=== PATIENT | male | born 1960 | race Caucasian/White ===

== ENCOUNTER 2024-05-18 07:54 | Inpatient (IN) | payer SELFPAY ==
[~2024-05-18] VITALS: Ht 185.4 cm; Wt 122.5 kg
[2024-05-18 08:43] LABS: BASOPHILS % 1.2 % (0.0-2.0); EOSINOPHILS % 3.1 % (0.0-5.0); HEMATOCRIT. 41.9 % (42.0-52.0); HEMOGLOBIN. 14.9 g/dL (14.0-18.0); LYMPHOCYTES % 21.8 % (20.0-50.0); MEAN CORPUSCULAR HEMOGLOBIN 33.6 pg (28.0-32.0); MEAN CORPUSCULAR HGB CONC 35.6 g/dL (31.0-37.0); MEAN CORPUSCULAR VOLUME 94.3 fL (80.0-94.0); MONOCYTES % 12.9 % (2.0-8.0); PLATELET 255 x1000/uL (130-400); RED BLOOD CELL COUNT 4.44 mill/uL (4.7-6.1); RED CELL DISTRIBUTION WIDTH 13.8 % (11.6-14.6); WHITE BLOOD COUNT 6.5 x1000/uL (4.5-11.0)
[2024-05-18 09:26] LABS: CHLORIDE 99 mEq/L (98-107); POTASSIUM 3.2 mEq/L (3.5-5.1); SODIUM 136 mEq/L (136-145)
[2024-05-18 09:27] LABS: CALCIUM 10.2 mg/dL (8.7-10.4); CARBON DIOXIDE 28 mEq/L (21-32)
[2024-05-18 09:32] LABS: AMMONIA < 17 uMol/L (<32); CREATININE 1.2 mg/dL (0.6-1.3); GLUCOSE 141 mg/dL (70-105); UREA NITROGEN BLOOD 18 mg/dL (9-23)
[2024-05-18 09:34] LABS: ACETAMINOPHEN 3 ug/mL (10-30); ALANINE AMINOTRANSFERASE 37 IU/L (10-49); ASPARTATE AMINOTRANSFERASE 25 IU/L (<34); BILIRUBIN DIRECT 0.2 mg/dL (<=3.0); BILIRUBIN TOTAL 0.7 mg/dL (0.1-1.0); PROTEIN TOTAL 7.7 g/dL (6.0-8.3)
[2024-05-18 09:56] LABS: ETHANOL BLOOD < 10 mg/dL (<10)
[2024-05-18] MEDS ORDERED: POTASSIUM CHLORIDE 20MEQ TABLET SR PO STA (13:19)
[2024-05-18] MEDS: POTASSIUM CHLORIDE 20MEQ TABLET SR PO NR (15:08)
[2024-05-18] MEDS ORDERED: CLONIDINE 0.1MG TABLET PO PRN (17:30)
[2024-05-18] MEDS ORDERED: ZOLPIDEM TARTRATE 5MG TABLET PO PRN (17:30)
[2024-05-18] MEDS: SODIUM CHLORIDE 0.9% 1,000 ML IV SCH (17:30)
[2024-05-18] MEDS ORDERED: ONDANSETRON HCL 4MG/2ML INJ IV PRN (17:30)
[2024-05-18] MEDS ORDERED: IPRATROPIUM/ALBUTEROL 0.5-3(2.5)MG/3ML NEB NEB PRN (17:30)
[2024-05-18] MEDS: LORAZEPAM 2MG/ML INJ IV PRN (19:00)
[2024-05-18 20:00] VITALS: BP 143/91; PULSE 87; RESP 20; TEMP 37.44744; TEMP 37.4744; O2SAT 96
[2024-05-18] MEDS: ENOXAPARIN 30MG/0.3ML SYR SUBCUT SCH (20:31)
[2024-05-19] VITALS (7 sets, daily range): BP systolic 118–174; BP diastolic 74–107; PULSE 98–119; RESP 16–20; TEMP 36.05844–36.72516; O2SAT 93–97
[2024-05-19] MEDS: HYDRALAZINE 20MG/ML VIAL IV PRN (01:35)
[2024-05-19] MEDS ORDERED: EZET10TA81 MT (04:36)
[2024-05-19] MEDS ORDERED: FLUT9.9S BOTHNSTRLS (04:36)
[2024-05-19] MEDS ORDERED: ACET-2708 MT (04:36)
[2024-05-19] MEDS ORDERED: VENL150C52 MT (04:36)
[2024-05-19] MEDS ORDERED: ROSU40TA MT (04:36)
[2024-05-19] MEDS ORDERED: PREG75CA MT (04:36)
[2024-05-19] MEDS ORDERED: METF-414 MT (04:36)
[2024-05-19] MEDS ORDERED: PERI4TAB MT (04:36)
[2024-05-19] MEDS ORDERED: CLON0.5T23 MT (04:36)
[2024-05-19] MEDS ORDERED: TAMS-11 MT (04:36)
[2024-05-19] MEDS ORDERED: *PATIENT'S OWN MEDICATION STORAGE XX SCH (07:15)
[2024-05-19 08:45] LABS: CHLORIDE 103 mEq/L (98-107); SODIUM 140 mEq/L (136-145)
[2024-05-19 08:46] LABS: CALCIUM 10.3 mg/dL (8.7-10.4); CARBON DIOXIDE 25 mEq/L (21-32)
[2024-05-19 08:50] LABS: CREATINE KINASE MB FRACTION 0.7 ng/mL (0.5-3.6)
[2024-05-19 08:51] LABS: CREATININE 0.9 mg/dL (0.6-1.3); GLUCOSE 141 mg/dL (70-105); TRIGLYCERIDE 94 mg/dL (0-150); UREA NITROGEN BLOOD 14 mg/dL (9-23)
[2024-05-19 08:52] LABS: LDL CHOLESTEROL 43 mg/dL (5-100)
[2024-05-19 08:53] LABS: BASOPHILS % 0.8 % (0.0-2.0); CHOLESTEROL 106 mg/dL (<200); CREATINE KINASE 183 IU/L (46-171); DIFFERENTIAL COMMENT 0; EOSINOPHILS % 0.7 % (0.0-5.0); HDL CHOLESTEROL 45 mg/dL (>55); HEMATOCRIT. 41.1 % (42.0-52.0); HEMOGLOBIN. 14.7 g/dL (14.0-18.0); LYMPHOCYTES % 17.9 % (20.0-50.0); MEAN CORPUSCULAR HEMOGLOBIN 34.2 pg (28.0-32.0); MEAN CORPUSCULAR HGB CONC 35.9 g/dL (31.0-37.0); MEAN CORPUSCULAR VOLUME 95.4 fL (80.0-94.0); MEAN PLATELET VOLUME 9.2 fl (7.4-10.4); MONOCYTES % 13.1 % (2.0-8.0); NEUTROPHILS % 67.5 % (40.0-76.0); PLATELET 279 x1000/uL (130-400); RED CELL DISTRIBUTION WIDTH 13.5 % (11.6-14.6); WHITE BLOOD COUNT 7.4 x1000/uL (4.5-11.0)
[2024-05-19 09:11] LABS: TROPONIN I HIGH SENSITIVITY < 4 ng/L (3.0-53)
[2024-05-19 09:16] LABS: POTASSIUM 2.7 mEq/L (3.5-5.1)
[2024-05-19] MEDS: KCL 20MEQ/100ML PREMIX 100 ML IV SCH (11:52)
[2024-05-19 14:00] LABS: TROPONIN I HIGH SENSITIVITY 4 ng/L (3.0-53)
[2024-05-19 14:02] LABS: CREATINE KINASE 220 IU/L (46-171)
[2024-05-19 22:46] LABS: VITAMIN B12 SERUM 565 pg/mL (211-911)
[2024-05-20] VITALS: BP 145/88; PULSE 114; RESP 20; TEMP 36.28068; O2SAT 92
[2024-05-20 04:00] VITALS: BP 136/89; PULSE 95; RESP 20; TEMP 36.44736; O2SAT 95
[2024-05-20 08:00] VITALS: BP 118/79; PULSE 79; RESP 18; TEMP 36.33624; O2SAT 100
[2024-05-20 12:00] VITALS: BP 168/92; PULSE 108; RESP 18; TEMP 36.44736; O2SAT 96
[2024-05-20 16:00] VITALS: BP 167/96; PULSE 114; RESP 18; TEMP 36.6696; O2SAT 95
[2024-05-20] MEDS ORDERED: DEXTROSE 50% WATER 50ML SYRINGE IV PRN (19:45)
[2024-05-20 20:00] VITALS: BP 155/81; PULSE 116; RESP 20; TEMP 36.72516; O2SAT 98
[2024-05-20 20:13] LABS: CLARITY URINE CLEAR (CLEAR); COLOR URINE YELLOW (YELLOW); GLUCOSE URINE NEGATIVE (NEGATIVE); KETONES URINE TRACE (NEGATIVE); LEUKOCYTE ESTERASE URINE NEGATIVE (NEGATIVE); NITRITE URINE NEGATIVE (NEGATIVE); OCCULT BLOOD URINE NEGATIVE (NEGATIVE); PROTEIN URINE NEGATIVE (NEGATIVE); SPECIFIC GRAVITY URINE 1.021 (1.005-1.030); UROBILINOGEN URINE 0.2 E.U./dL (0.2-1.0)
[2024-05-20 21:29] LABS: *AMPHETAMINES SCREEN URINE NEGATIVE (NEGATIVE)
[2024-05-20 21:30] LABS: *BARBITURATES SCREEN URINE NEGATIVE (NEGATIVE); *BENZODIAZEPINES SCREEN URINE NEGATIVE (NEGATIVE); *COCAINE SCREEN URINE NEGATIVE (NEGATIVE)
[2024-05-20 21:31] LABS: CANNABINOID URINE SCREEN PRESUMPTIVE POSITIVE (NEGATIVE); ECSTASY MDMA SCREEN URINE NEGATIVE (NEGATIVE); METHADONE URINE SCREEN NEGATIVE (NEGATIVE); OPIATES URINE SCREEN NEGATIVE (NEGATIVE); PHENCYCLIDINE URINE SCREEN NEGATIVE (NEGATIVE)
[2024-05-20] MEDS: QUETIAPINE FUMARATE 25MG TABLET PO SCH (22:35)
[2024-05-20] MEDS: DEXT 5%/0.9% NACL 1,000 ML IV SCH (22:37)
[2024-05-20] MEDS: BLOOD SUGAR DIAGNOSTIC STRIP TEST SCH (23:55)
[2024-05-21] VITALS: BP 166/93; PULSE 114; RESP 18; TEMP 36.22512; TEMP 38.11416; O2SAT 98
[2024-05-21] MEDS: INSULIN LISPRO 100 UNITS/ML SUBCUT SCH (01:17)
[2024-05-21 04:00] VITALS: BP 154/93; PULSE 116; RESP 20; TEMP 37.28076; O2SAT 97
[2024-05-21 06:27] LABS: CALCIUM 9.4 mg/dL (8.7-10.4); CARBON DIOXIDE 24 mEq/L (21-32); CHLORIDE 110 mEq/L (98-107); POTASSIUM 3.1 mEq/L (3.5-5.1); SODIUM 146 mEq/L (136-145)
[2024-05-21 06:32] LABS: CREATININE 0.9 mg/dL (0.6-1.3)
[2024-05-21 06:33] LABS: GLUCOSE 135 mg/dL (70-105); UREA NITROGEN BLOOD 18 mg/dL (9-23)
[2024-05-21 07:20] LABS: BASOPHILS % 0.6 % (0.0-2.0); EOSINOPHILS % 0.1 % (0.0-5.0); HEMOGLOBIN. 14.8 g/dL (14.0-18.0); LYMPHOCYTES % 8.7 % (20.0-50.0); MEAN CORPUSCULAR HEMOGLOBIN 32.9 pg (28.0-32.0); MEAN CORPUSCULAR HGB CONC 34.3 g/dL (31.0-37.0); MEAN CORPUSCULAR VOLUME 95.9 fL (80.0-94.0); MEAN PLATELET VOLUME 9.4 fl (7.4-10.4); MONOCYTES % 12.1 % (2.0-8.0); NEUTROPHILS % 78.5 % (40.0-76.0); PLATELET 277 x1000/uL (130-400); RED BLOOD CELL COUNT 4.48 mill/uL (4.7-6.1); RED CELL DISTRIBUTION WIDTH 13.7 % (11.6-14.6); WHITE BLOOD COUNT 8.5 x1000/uL (4.5-11.0)
[2024-05-21 08:04] VITALS: BP 186/100; PULSE 83; RESP 18; TEMP 36.72516; O2SAT 93
[2024-05-21 11:52] VITALS: BP 141/84; PULSE 111; RESP 19; TEMP 36.6696; O2SAT 93
[2024-05-21] MEDS: THIAMINE HCL 200 MG in SODIUM CHLORIDE 0.9% 98 ML IV SCH (13:07)
[2024-05-21 16:08] VITALS: BP 128/92; PULSE 108; RESP 19; TEMP 37.16964; O2SAT 92
[2024-05-21] MEDS: POTASSIUM CHLORIDE 20MEQ/PACKET PO NR (18:12)
[2024-05-21 20:00] VITALS: BP 136/89; PULSE 105; RESP 20; TEMP 37.11408; O2SAT 97
[2024-05-22 00:09] VITALS: BP 156/92; PULSE 88; RESP 20; TEMP 37.05852; O2SAT 98
[2024-05-22 04:00] VITALS: BP 159/52; PULSE 93; RESP 18; TEMP 37.16964; O2SAT 97
[2024-05-22 08:00] VITALS: BP 170/74; PULSE 92; RESP 18; TEMP 37.16964; O2SAT 98
[2024-05-22] MEDS ORDERED: MIRT45TA83 MT (08:47)
[2024-05-22] MEDS: RISPERIDONE 1MG TABLET PO SCH (10:46)
[2024-05-22 12:00] VITALS: BP 129/76; PULSE 102; RESP 18; TEMP 36.61404; O2SAT 98
[2024-05-22 15:31] LABS: HEMATOCRIT. 40.3 % (42.0-52.0); HEMOGLOBIN. 13.5 g/dL (14.0-18.0); LYMPHOCYTES % 27.4 % (20.0-50.0); MEAN CORPUSCULAR HEMOGLOBIN 32.9 pg (28.0-32.0); MEAN CORPUSCULAR HGB CONC 33.5 g/dL (31.0-37.0); MEAN CORPUSCULAR VOLUME 98.2 fL (80.0-94.0); MEAN PLATELET VOLUME 9.4 fl (7.4-10.4); MONOCYTES % 13.1 % (2.0-8.0); NEUTROPHILS % 55.5 % (40.0-76.0); PLATELET 231 x1000/uL (130-400); RED CELL DISTRIBUTION WIDTH 14.2 % (11.6-14.6); WHITE BLOOD COUNT 7.2 x1000/uL (4.5-11.0)
[2024-05-22 15:32] LABS: CHLORIDE 114 mEq/L (98-107); POTASSIUM 3.1 mEq/L (3.5-5.1); SODIUM 147 mEq/L (136-145)
[2024-05-22 15:33] LABS: CALCIUM 9.2 mg/dL (8.7-10.4); CARBON DIOXIDE 26 mEq/L (21-32)
[2024-05-22 15:38] LABS: CREATININE 0.8 mg/dL (0.6-1.3); GLUCOSE 94 mg/dL (70-105); UREA NITROGEN BLOOD 21 mg/dL (9-23)
[2024-05-22 16:29] VITALS: BP 147/87; PULSE 87; RESP 18; TEMP 36.44736; O2SAT 96
[2024-05-22] MEDS: POTASSIUM CHLORIDE 20 MEQ in DEXT 5%/0.45% NACL 1000ML 1,000 ML IV SCH (17:48)
[2024-05-22 20:00] VITALS: BP 131/57; PULSE 88; RESP 20; TEMP 36.3918; O2SAT 95
[2024-05-23] VITALS: BP 150/80; PULSE 90; RESP 20; TEMP 36.22512; O2SAT 96
[2024-05-23 04:00] VITALS: BP 127/95; PULSE 89; RESP 20; TEMP 36.83628; O2SAT 98
[2024-05-23 08:29] LABS: CALCIUM 9.3 mg/dL (8.7-10.4); CHLORIDE 111 mEq/L (98-107); POTASSIUM 3.1 mEq/L (3.5-5.1); SODIUM 146 mEq/L (136-145)
[2024-05-23 08:30] LABS: CARBON DIOXIDE 26 mEq/L (21-32)
[2024-05-23 08:35] LABS: CREATININE 0.8 mg/dL (0.6-1.3); GLUCOSE 105 mg/dL (70-105); UREA NITROGEN BLOOD 21 mg/dL (9-23)
[2024-05-23 10:48] VITALS: BP 163/96; PULSE 90; RESP 20; TEMP 37.05852; O2SAT 95
[2024-05-23 12:06] VITALS: BP 160/85; PULSE 96; RESP 18; TEMP 37.00296; O2SAT 98
[2024-05-23] MEDS: HALOPERIDOL LACTATE 5MG/ML VIAL IM PRN (12:34)
[2024-05-23 16:39] VITALS: BP 158/80; PULSE 94; RESP 18; TEMP 36.61404; O2SAT 97
[2024-05-23 20:00] VITALS: BP 170/83; PULSE 101; RESP 20; TEMP 36.78072; O2SAT 95
[2024-05-24] VITALS: BP 145/81; PULSE 94; RESP 20; TEMP 36.61404; O2SAT 96
[2024-05-24 04:00] VITALS: BP 147/58; PULSE 99; RESP 19; TEMP 36.44736; O2SAT 97
[2024-05-24] MEDS: NACL KCL IV SCH ×2 (06:37→23:26)
[2024-05-24] MEDS: DEXT IV SCH ×2 (06:37→23:26)
[2024-05-24] MEDS: POTASSIUM CHLORIDE IV SCH ×2 (06:37→23:26)
[2024-05-24 08:00] VITALS: BP 156/84; PULSE 104; PULSE 99; RESP 20; TEMP 36.44736; O2SAT 97
[2024-05-24 12:00] VITALS: BP 140/89; PULSE 91; RESP 20; TEMP 36.3918; O2SAT 99
[2024-05-24 16:00] VITALS: BP 146/80; PULSE 89; RESP 18; TEMP 36.3918; O2SAT 98
[2024-05-24 20:41] VITALS: BP 145/80; PULSE 79; RESP 20; TEMP 36.3918; O2SAT 93
[2024-05-25] VITALS: BP 144/80; PULSE 84; RESP 20; TEMP 36.33624; O2SAT 98
[2024-05-25 04:00] VITALS: BP 152/79; PULSE 75; RESP 20; TEMP 37.503; O2SAT 100
[2024-05-25 08:03] VITALS: BP 137/80; PULSE 76; RESP 18; TEMP 36.61404; O2SAT 98
[2024-05-25 11:38] VITALS: BP 141/81; PULSE 69; RESP 19; TEMP 36.89184; O2SAT 98
[2024-05-25 13:59] LABS: CLARITY URINE CLEAR (CLEAR); COLOR URINE DARK YELLOW (YELLOW); GLUCOSE URINE NEGATIVE (NEGATIVE); KETONES URINE NEGATIVE (NEGATIVE); LEUKOCYTE ESTERASE URINE NEGATIVE (NEGATIVE); NITRITE URINE NEGATIVE (NEGATIVE); OCCULT BLOOD URINE NEGATIVE (NEGATIVE); PROTEIN URINE TRACE (NEGATIVE); SPECIFIC GRAVITY URINE 1.026 (1.005-1.030)
[2024-05-25 14:24] LABS: BACTERIA URINE NONE SEEN; RBC URINE 0-2 /hpf (0-2); SQUAMOUS EPITHELIAL CELL URINE RARE /lpf (RARE/1+); WBC URINE 0-2 /hpf (0-2); YEAST URINE NONE SEEN
[2024-05-25 16:41] VITALS: BP 154/86; PULSE 87; RESP 20; TEMP 36.83628; O2SAT 97
[2024-05-25 20:00] VITALS: BP 129/69; PULSE 85; RESP 18; TEMP 37.503; O2SAT 96
[2024-05-26] VITALS: BP 133/65; PULSE 77; RESP 18; TEMP 37.00296; O2SAT 97
[2024-05-26 04:00] VITALS: BP 167/80; PULSE 90; RESP 20; TEMP 37.39188; O2SAT 98
[2024-05-26 07:58] VITALS: BP 163/95; PULSE 92; RESP 20; TEMP 36.72516; O2SAT 97
[2024-05-26] MEDS: RISPERIDONE 1MG TABLET PO SCH (10:32)
[2024-05-26 11:34] VITALS: BP 141/87; PULSE 113; RESP 20; TEMP 37.00296; O2SAT 97
[2024-05-26 16:06] VITALS: BP 141/89; PULSE 94; RESP 20; TEMP 36.78072; O2SAT 96
[2024-05-26 20:06] VITALS: BP 140/84; PULSE 93; RESP 18; TEMP 37.28076; O2SAT 96
[2024-05-27] VITALS: BP 154/88; PULSE 68; RESP 20; TEMP 36.61404; O2SAT 99
[2024-05-27 04:00] VITALS: BP 163/86; PULSE 95; RESP 18; TEMP 37.2252; O2SAT 98
[2024-05-27 07:51] VITALS: BP 150/92; PULSE 92; RESP 18; TEMP 37.00296; O2SAT 94
[2024-05-27 11:57] VITALS: BP 135/95; PULSE 88; RESP 18; TEMP 37.05852; O2SAT 95
[2024-05-27 16:00] VITALS: BP 110/77; PULSE 89; RESP 20; TEMP 36.72516; O2SAT 96
[2024-05-27 20:29] VITALS: BP 129/76; PULSE 90; RESP 20; TEMP 37.72524; O2SAT 98
[2024-05-28] VITALS: BP 138/74; PULSE 90; RESP 20; TEMP 37.66968; O2SAT 97
[2024-05-28 04:00] VITALS: BP 135/75; PULSE 78; RESP 20; TEMP 37.11408; O2SAT 98
[2024-05-28 08:00] VITALS: BP 142/83; PULSE 83; RESP 19; TEMP 36.6696; O2SAT 95
[2024-05-28 12:00] VITALS: BP 110/78; PULSE 69; RESP 18; TEMP 36.16956; O2SAT 98
[2024-05-28 16:00] VITALS: BP 121/71; PULSE 97; RESP 18; TEMP 36.50292; O2SAT 98
[2024-05-28 20:00] VITALS: BP 127/79; PULSE 85; RESP 20; TEMP 37.66968; O2SAT 99
[2024-05-29] VITALS (7 sets, daily range): BP systolic 114–153; BP diastolic 65–85; PULSE 78–96; RESP 18–20; TEMP 36.44736–37.39188; O2SAT 87–99
[2024-05-29 12:26] LABS: CHLORIDE 106 mEq/L (98-107); POTASSIUM 4.2 mEq/L (3.5-5.1); SODIUM 138 mEq/L (136-145)
[2024-05-29 12:27] LABS: CARBON DIOXIDE 26 mEq/L (21-32)
[2024-05-29 12:28] LABS: CALCIUM 9.2 mg/dL (8.7-10.4)
[2024-05-29 12:32] LABS: CREATININE 0.9 mg/dL (0.6-1.3); GLUCOSE 109 mg/dL (70-105)
[2024-05-29 12:33] LABS: UREA NITROGEN BLOOD 13 mg/dL (9-23)
[2024-05-29 14:22] LABS: CLARITY URINE CLOUDY (CLEAR); COLOR URINE YELLOW (YELLOW); GLUCOSE URINE NEGATIVE (NEGATIVE); KETONES URINE NEGATIVE (NEGATIVE); LEUKOCYTE ESTERASE URINE TRACE (NEGATIVE); NITRITE URINE NEGATIVE (NEGATIVE); OCCULT BLOOD URINE 3+ (NEGATIVE); PH URINE 5.5 (4.5-8.0); PROTEIN URINE 1+ (NEGATIVE); SPECIFIC GRAVITY URINE 1.019 (1.005-1.030); UROBILINOGEN URINE 0.2 E.U./dL (0.2-1.0)
[2024-05-29 14:44] LABS: MUCUS URINE 3+ /lpf (NONE/TRACE)
[2024-05-29 14:45] LABS: RBC URINE TNTC /hpf (0-2)
[2024-05-29 14:46] LABS: BACTERIA URINE 2+; SQUAMOUS EPITHELIAL CELL URINE RARE /lpf (RARE/1+)
[2024-05-29] MEDS: DEXT 5%/0.45% NACL KCL 20MEQ/L 1,000 ML IV SCH (16:34)
[2024-05-30 04:00] VITALS: BP 116/68; PULSE 89; RESP 20; TEMP 36.33624; O2SAT 97
[2024-05-30 08:29] VITALS: BP 141/65; PULSE 72; RESP 20; TEMP 36.50292; O2SAT 96
[2024-05-30 12:24] VITALS: BP 138/61; PULSE 79; RESP 20; TEMP 37.16964; O2SAT 100
[2024-05-30 16:27] VITALS: BP 126/64; PULSE 83; RESP 20; TEMP 36.55848; O2SAT 94
[2024-05-30 20:00] VITALS: BP 133/81; PULSE 80; RESP 18; TEMP 36.50292; O2SAT 95
[2024-05-31] VITALS: BP 132/85; PULSE 99; RESP 18; TEMP 36.55848; O2SAT 97
[2024-05-31 04:00] VITALS: BP 139/80; PULSE 94; RESP 20; TEMP 37.44744; O2SAT 95
[2024-05-31 08:00] VITALS: BP 136/84; PULSE 86; RESP 18; TEMP 36.61404; O2SAT 97
[2024-05-31 12:00] VITALS: BP 126/80; PULSE 86; RESP 18; TEMP 36.6696; O2SAT 97
[2024-05-31 16:00] VITALS: BP 123/59; PULSE 96; RESP 20; TEMP 36.114; O2SAT 98
[2024-05-31] MEDS ORDERED: HYDRALAZINE 10 MG in SODIUM CHLORIDE 0.9% 49.5 ML IV PRN (17:15)
[2024-05-31 20:00] VITALS: BP 95/57; PULSE 103; RESP 18; TEMP 36.16956; O2SAT 95
[2024-06-01] VITALS: BP 91/49; PULSE 103; RESP 18; TEMP 36.22512; O2SAT 95
[2024-06-01] MEDS: TRAZODONE HCL 50MG TABLET PO SCH (01:41)
[2024-06-01 04:00] VITALS: BP 138/87; PULSE 100; RESP 18; TEMP 36.28068; O2SAT 95
[2024-06-01 08:00] VITALS: BP 127/76; PULSE 94; RESP 20; TEMP 36.44736; O2SAT 98
[2024-06-01 12:00] VITALS: BP 117/72; PULSE 100; RESP 18; TEMP 36.33624; O2SAT 97
[2024-06-01 16:00] VITALS: BP 137/75; PULSE 91; RESP 16; TEMP 36.9474; O2SAT 95
[2024-06-01 20:00] VITALS: BP 106/67; PULSE 85; RESP 18; TEMP 36.3918; O2SAT 95
[2024-06-01] MEDS: ACETAMINOPHEN 325MG TABLET PO PRN (21:34)
[2024-06-02] VITALS: BP 108/80; PULSE 85; RESP 18; TEMP 36.28068; O2SAT 95
[2024-06-02 04:00] VITALS: BP 126/53; PULSE 91; RESP 19; TEMP 36.22512; O2SAT 96
[2024-06-02 08:00] VITALS: BP 118/72; PULSE 84; RESP 18; TEMP 36.33624; O2SAT 97
[2024-06-02 08:19] LABS: CHLORIDE 107 mEq/L (98-107); POTASSIUM 3.9 mEq/L (3.5-5.1); SODIUM 138 mEq/L (136-145)
[2024-06-02 08:20] LABS: CARBON DIOXIDE 23 mEq/L (21-32)
[2024-06-02 08:21] LABS: CALCIUM 8.9 mg/dL (8.7-10.4)
[2024-06-02 08:25] LABS: CREATININE 0.8 mg/dL (0.6-1.3); GLUCOSE 109 mg/dL (70-105); UREA NITROGEN BLOOD 13 mg/dL (9-23)
[2024-06-02 08:47] LABS: BASOPHILS % 0.8 % (0.0-2.0); EOSINOPHILS % 3.6 % (0.0-5.0); HEMATOCRIT. 38.1 % (42.0-52.0); HEMOGLOBIN. 12.7 g/dL (14.0-18.0); LYMPHOCYTES % 17.9 % (20.0-50.0); MEAN CORPUSCULAR HGB CONC 33.5 g/dL (31.0-37.0); MEAN CORPUSCULAR VOLUME 95.7 fL (80.0-94.0); MEAN PLATELET VOLUME 9.3 fl (7.4-10.4); NEUTROPHILS % 66.7 % (40.0-76.0); PLATELET 234 x1000/uL (130-400); RED BLOOD CELL COUNT 3.98 mill/uL (4.7-6.1); RED CELL DISTRIBUTION WIDTH 13.9 % (11.6-14.6); WHITE BLOOD COUNT 6.4 x1000/uL (4.5-11.0)
[2024-06-02 12:00] VITALS: BP 127/77; PULSE 88; RESP 20; TEMP 36.22512; O2SAT 98
[2024-06-02 16:00] VITALS: BP 124/81; PULSE 85; RESP 18; TEMP 36.3918; O2SAT 99
[2024-06-02 20:00] VITALS: BP 110/57; PULSE 87; RESP 18; TEMP 36.3918; O2SAT 96
[2024-06-03] VITALS: BP 112/47; PULSE 89; RESP 18; TEMP 36.3918; O2SAT 97
[2024-06-03] MEDS ORDERED: IPRATROPIUM/ALBUTEROL 0.5-3(2.5)MG/3ML NEB HHN PRN (02:15)
[2024-06-03] MEDS: CLONAZEPAM 0.5MG TABLET PO SCH (02:28)
[2024-06-03 04:00] VITALS: BP 105/60; PULSE 60; RESP 18; TEMP 36.28068; O2SAT 98
[2024-06-03 12:00] VITALS: BP 130/68; PULSE 72; RESP 20; TEMP 36.72516; O2SAT 97
[2024-06-03 16:46] VITALS: BP 136/80; PULSE 93; RESP 18; TEMP 36.83628; O2SAT 94
[2024-06-03] MEDS ORDERED: CLONAZEPAM 0.5MG TABLET PO PRN (17:30)
[2024-06-03 20:00] VITALS: BP 120/62; PULSE 82; RESP 18; TEMP 36.61404; O2SAT 95
[2024-06-03] MEDS: CLONAZEPAM 1MG TABLET PO PRN (20:29)
[2024-06-04] VITALS: BP 111/55; PULSE 79; RESP 18; TEMP 36.72516; O2SAT 96
[2024-06-04 04:00] VITALS: BP 121/60; PULSE 87; RESP 18; TEMP 36.3918; O2SAT 96
[2024-06-04 08:00] VITALS: BP 116/77; PULSE 73; RESP 18; TEMP 36.00288; O2SAT 95
[2024-06-04] MEDS: CLONAZEPAM 1MG TABLET PO PRN (08:54)
[2024-06-04] MEDS: ENOXAPARIN 30MG/0.3ML SYR SUBCUT SCH (08:55)
[2024-06-04 12:00] VITALS: BP 121/72; PULSE 70; RESP 20; TEMP 36.114; O2SAT 100
[2024-06-04 16:00] VITALS: BP 135/77; PULSE 84; RESP 19; TEMP 36.3918; O2SAT 99
[2024-06-04 20:00] VITALS: BP 124/53; PULSE 89; RESP 17; TEMP 35.89176
[2024-06-05] VITALS: BP 125/62; PULSE 90; RESP 17; TEMP 35.94732; O2SAT 97
[2024-06-05 04:00] VITALS: BP 103/69; PULSE 81; RESP 18; TEMP 36.61404; O2SAT 99
[2024-06-05 08:00] VITALS: BP 137/84; PULSE 77; RESP 16; TEMP 36.3918; O2SAT 97
[2024-06-05] MEDS ORDERED: LIDOCAINE HCL 1% 10 MG/ML 10ML VIAL ONE (09:51)
[2024-06-05 12:00] VITALS: BP 117/77; PULSE 84; RESP 18; TEMP 36.3918; O2SAT 97
[2024-06-05 16:00] VITALS: BP 116/59; PULSE 84; RESP 20; TEMP 36.44736; O2SAT 96
[2024-06-05 20:00] VITALS: BP 119/44; PULSE 86; RESP 19; TEMP 36.3918; O2SAT 93
[2024-06-05] MEDS: RISPERIDONE 1MG TABLET PO SCH (20:58)
[2024-06-06] VITALS: BP 120/50; PULSE 88; RESP 18; TEMP 36.44736; O2SAT 91
[2024-06-06 04:00] VITALS: BP 118/61; PULSE 88; RESP 18; TEMP 36.50292; O2SAT 99
[2024-06-06 08:00] VITALS: BP 138/87; PULSE 81; RESP 20; TEMP 36.6696; O2SAT 100
[2024-06-06 12:00] VITALS: BP 155/92; PULSE 87; RESP 18; TEMP 36.78072; O2SAT 100
[2024-06-06 16:00] VITALS: BP 142/81; PULSE 84; RESP 20; TEMP 36.114; O2SAT 100
[2024-06-06 20:00] VITALS: BP 93/57; PULSE 80; RESP 18; TEMP 36.114; O2SAT 98
[2024-06-07] VITALS: BP 120/56; PULSE 81; RESP 18; TEMP 36.22512; O2SAT 97
[2024-06-07 04:00] VITALS: BP 138/70; PULSE 84; RESP 16; TEMP 36.6696; O2SAT 97
[2024-06-07 08:00] VITALS: BP 135/68; PULSE 83; RESP 18; TEMP 36.22512; O2SAT 98
[2024-06-07] MEDS ORDERED: RISPERIDONE 1MG TABLET PO SCH (09:00)
[2024-06-07 12:00] VITALS: BP 121/75; PULSE 86; RESP 18; TEMP 36.44736; O2SAT 98
[2024-06-07] MEDS ORDERED: CLON1TAB12 PO (13:22)
[2024-06-07] MEDS ORDERED: THIA100T72 MT (13:22)
[2024-06-07] MEDS ORDERED: TRAZ-251 PO (13:22)
[2024-06-07] MEDS ORDERED: QUET25TA PO (13:22)
[2024-06-07] MEDS ORDERED: RISP1 PO (13:22)
[2024-06-07 14:50] VITALS: BP 121/75; PULSE 86; TEMP 98.6; O2SAT 98
[2024-06-07 20:00] VITALS: BP 117/75; PULSE 96; RESP 19; TEMP 36.114; TEMP 36.11400; O2SAT 99
== END 2024-06-07 20:07 | disposition home or self-care (01) | DRG 52 ==
LOC: ER 08:01 → EDBEDREQTM 13:33 → EDBEDREQ 13:33 → 5WST 14:33 → 7WST 21:26 → 6WST 05-31 10:21
PROVIDERS: ADMIT Internal Medicine; ATTEND Internal Medicine
PROC: 02HV33Z Insertion of Infusion Device into Superior Vena Cava, Percutaneous Approach (ICD-10-PCS; principal; 2024-06-05)
PROC: B548ZZA Ultrasonography of Superior Vena Cava, Guidance (ICD-10-PCS; 2024-06-05)
DX: G92.8 Other toxic encephalopathy (principal); F25.0 Schizoaffective disorder, bipolar type; E87.6 Hypokalemia; E11.9 Type 2 diabetes mellitus without complications; I10 Essential (primary) hypertension; F10.20 Alcohol dependence, uncomplicated; F12.10 Cannabis abuse, uncomplicated; F41.1 Generalized anxiety disorder; F32.9 Major depressive disorder, single episode, unspecified
CPT/HCPCS: 36415; 36573; 70551; 71045; 80048; 80061; 80076; 80305; 80307; 80320; 80329; 81003; 82140; 82550; 82553; 82607; 82962; 83036; 84443; 84484; 85025; 93005; 97110; 97116; 97162; 97166; 97530; 97535; 99285; C1725; C1893; J0360; J1630; J1650; J1815; J2060; J3411; J3480; J3490; J7030; J7042; J7050; G0480